=== PATIENT | female | born 1990 | race Caucasian/White ===

== ENCOUNTER 2018-12-07 22:05 | Observation (INO) | payer MEDICAID ==
[~2018-12-07] VITALS: Ht 157.5 cm; Wt 67.1 kg
[2018-12-07] MEDS ORDERED: NITR-87 MT (23:20)
== END 2018-12-07 23:30 | disposition home or self-care (01) ==
LOC: 8 EST LDRP 22:05
PROVIDERS: ADMIT Obstetrics & Gynecology; ATTEND Obstetrics & Gynecology
DX: O26.899 Other specified pregnancy related conditions, unspecified trimester (principal); O23.599 Infection of other part of genital tract in pregnancy, unspecified trimester; R10.2 Pelvic and perineal pain; O34.60 Maternal care for abnormality of vagina, unspecified trimester; L29.2 Pruritus vulvae; Z3A.00 Weeks of gestation of pregnancy not specified
CPT/HCPCS: 99281; G0378